=== PATIENT | male | born 1965 | race Caucasian/White ===

== ENCOUNTER 2016-11-11 12:10 | Emergency (ER) | payer SELFPAY ==
[2016-11-11] MEDS ORDERED: Ondansetron INJ* 2 MG/ML VIAL IV ONE (12:33)
[2016-11-11] MEDS ORDERED: HYDROmorphone* 1 MG/ML 1 ML CARPUJECT IV ONE (12:33)
[2016-11-11] MEDS ORDERED: NS 0.9% 1000 ML* 1,000 ML IV ONE ×2 (12:33→14:29)
[2016-11-11] MEDS ORDERED: Ketorolac INJ* 30 MG/ML 1 ML VIAL IV ONE (12:33)
[2016-11-11 12:53] LABS: Hematocrit 48 % (42-52); Mean Corpuscular HGB Conc 33 g/dl (31-36); Mean Corpuscular Hemoglobin 29 pg (27-31); Mean Corpuscular Volume 86 fL (80-94); Mean Platelet Volume 8 um3 (7.4-10.4); Red Blood Count 5.54 10^6/ul (4.0-5.4); Red Cell Distribution Width 14 % (10.5-15); White Blood Count 16.4 10^3/ul (3.5-10.8)
[2016-11-11 13:10] LABS: Albumin 4.5 g/dL (3.2-5.2); BUN/Creatinine Ratio 16.4 (8-20); C Reactive Protein 11.08 mg/L (< 5.00); Calcium 9.6 mg/dL (8.6-10.3); EGFR African American 90.4 (>60); EGFR Non-African American 70.3 (>60); Globulin 3.2 g/dL (2-4); Potassium 3.7 mmol/L (3.5-5.0); Total Bilirubin 0.6 mg/dL (0.2-1.0); Total Protein 7.7 g/dL (6.4-8.9)
--- NOTE | 2016-11-11 13:13 | RAD ---
Indication: Left flank pain. CT of the abdomen and pelvis was performed without oral or IV contrast demonstration. Coronal and sagittal reconstructed images were obtained. The lung bases demonstrate no pleural fluid, nodules or masses. Heart is of normal size without evidence of pericardial effusion. The liver is normal in size. It is diffusely decreased in density consistent with hepatic steatosis. The gallbladder demonstrates no calcified gallstones. No pericholecystic fluid or wall thickening is identified. Common duct is not dilated. The pancreas demonstrates no mass effect or ductal dilatation. The spleen is normal in size. No adrenal lesions are noted. There is mild left hydronephrosis and hydroureter. There is a 2 to 3 mm calculi in the distal left ureter just above the left ureterovesicular junction. The right ureter shows no evidence of obstructive uropathy. CT of the pelvis demonstrates diverticulosis without definite evidence of diverticulitis. Small bowel demonstrates no abnormal dilatation. The appendix is normal. IMPRESSION: There is a small 2 to 3 mm calculus in the distal left ureter just above the left ureterovesicular junction. Mild fullness of left renal collecting system is noted. The right kidney shows no obstructive uropathy. Diverticulosis without definite evidence of diverticulitis.
[2016-11-11 14:15] LABS: Urine Bilirubin Negative (Negative); Urine Glucose 3+(>=500 mg/dL) (Negative); Urine Nitrite Negative (Negative)
[2016-11-11] MEDS ORDERED: oxyCODONE/Acetamin 5/325 MG* TAB PO ONE (14:29)
[2016-11-11 16:42] VITALS: BP 133/74
--- NOTE | 2016-11-11 17:19 | ED ---
Ann Marie Izaguirre Thomas, scribed for Gio Herrera MD on 11/11/16 at 1227 . Abdominal Pain/Male - HPI Summary HPI Summary: The pt is a 51 y/o M with a Hx of kidney stones c/o constant L flank pain that suddenly began today at 08:00. The pain radiates to his groin. The pt rates the pain 10/10. The pain is aggravated and alleviated by nothing. 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 Pt additionally c/o N/V. He also complains of urinary urgency but inability to void. He did urinate before the pain began but he has not urinated since the pain began. The patient reports that these symptoms feel like a stone. PMHx: kidney stones (1-2), HTN. PSHx: R shoulder repair. SHx: no smoking, no alcohol use, no illicit drug use. FHx: kidney stones. He is accompanied by his girlfriend. He has not seen a urologist for his kidney stones. 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 Negative: Fever - Allergies/Home Medications Allergies/Adverse Reactions: Allergies Allergy/AdvReac Type Severity Reaction Status Date / Time No Known Allergies Allergy Verified 11/11/16 12:22 PMH/Surg Hx/FS Hx/Imm Hx Previously Healthy: No Endocrine/Hematology History: Denies: Hx Diabetes Cardiovascular History: Reports: Hx Hypertension Denies: Hx Pacemaker/ICD GI History: Denies: Other GI Disorders History: Reports: Hx Kidney Stones Sensory History: Denies: Hx Hearing Aid Psychiatric History: Denies: Hx Panic Disorder - Surgical History Surgery Procedure, Year, and Place: R shouder repair Infectious Disease History: No Infectious Disease History: Denies: Traveled Outside the [place] in Last 30 Days - Family History Known Family History: Positive: Other - POS: kidney stones - Social History Alcohol Use: None Substance Use Type: Reports: None Hx Tobacco Use: No Smoking Status (MU): Never Smoked Tobacco Review of Systems Negative: Fever Positive: Vomiting, Nausea Positive: flank pain - L flank pain that radiates into the groin, urgency, other - POS: inability to void All Other Systems Reviewed And Are Negative: Yes Physical Exam Triage Information Reviewed: Yes Vital Signs On Initial Exam: Initial Vitals Temp Pulse Resp BP Pulse Ox 98.4 F 70 22 143/68 98 11/11/16 12:13 11/11/16 12:13 11/11/16 12:13 11/11/16 12:13 11/11/16 12:13 Vital Signs Reviewed: Yes Appearance: Positive: Well-Appearing, Pain Distress - moderate, Obese Skin: Positive: Warm, Skin Color Reflects Adequate Perfusion, Dry Head/Face: Positive: Normal Head/Face Inspection Eyes: Positive: Normal ENT: Positive: Normal ENT inspection Neck: Positive: Supple, Nontender Respiratory/Lung Sounds: Positive: Clear to Auscultation, Breath Sounds Present Cardiovascular: Positive: RRR Abdomen Description: Positive: Nontender, Soft Bowel Sounds: Positive: Present Musculoskeletal: Positive: Normal Neurological: Positive: Normal Psychiatric: Positive: Normal, Affect/Mood Appropriate Diagnostics - Vital Signs Vital Signs Temp Pulse Resp BP Pulse Ox 11/11/16 12:19 98.8 F 80 22 156/65 99 11/11/16 12:13 98.4 F 70 22 143/68 98 - Laboratory Lab Results: Lab Results 11/11/16 11/11/16 11/11/16 Range/Units 12:40 12:40 12:40 WBC 16.4 H (3.5-10.8) 10^3/ul RBC 5.54 H (4.0-5.4) 10^6/ul Hgb 16.0 (14.0-18.0) g/dl Hct 48 (42-52) % MCV 86 (80-94) fL MCH 29 (27-31) pg MCHC 33 (31-36) g/dl RDW 14 (10.5-15) % Plt Count 313 (150-450) 10^3/ul MPV 8 (7.4-10.4) um3 Neut % (Auto) 78.7 (38-83) % Lymph % (Auto) 16.3 L (25-47) % Nolan % (Auto) 4.5 (1-9) % Eos % (Auto) 0.2 (0-6) % Baso % (Auto) 0.3 (0-2) % Absolute Neuts (auto) 12.9 H (1.5-7.7) 10^3/ul Absolute Lymphs (auto) 2.7 (1.0-4.8) 10^3/ul Absolute Monos (auto) 0.7 (0-0.8) 10^3/ul Absolute Eos (auto) 0 (0-0.6) 10^3/ul Absolute Basos (auto) 0.1 (0-0.2) 10^3/ul Absolute Nucleated RBC 0.01 10^3/ul Nucleated RBC % 0.1 Sodium 136 (133-145) mmol/L Potassium 3.7 (3.5-5.0) mmol/L Chloride 101 (101-111) mmol/L Carbon Dioxide 24 (22-32) mmol/L Anion Gap 11 (2-11) mmol/L BUN 18 (6-24) mg/dL Creatinine 1.10 (0.67-1.17) mg/dL Est GFR ( Amer) 90.4 (>60) Est GFR (Non-Af Amer) 70.3 (>60) BUN/Creatinine Ratio 16.4 (8-20) Glucose 228 H (70-100) mg/dL Lactic Acid 3.8 H* (0.5-2.0) mmol/L Calcium 9.6 (8.6-10.3) mg/dL Total Bilirubin 0.60 (0.2-1.0) mg/dL AST 21 (13-39) U/L ALT 32 (7-52) U/L Alkaline Phosphatase 63 (34-104) U/L C-Reactive Protein 11.08 H (< 5.00) mg/L Total Protein 7.7 (6.4-8.9) g/dL Albumin 4.5 (3.2-5.2) g/dL Globulin 3.2 (2-4) g/dL Albumin/Globulin Ratio 1.4 (1-3) Lipase 25 (11.0-82.0) U/L Urine Color Urine Appearance Urine pH (5-9) Ur Specific Sutter (1.010-1.030) Urine Protein (Negative) Urine Ketones (Negative) Urine Blood (Negative) Urine Nitrate (Negative) Urine Bilirubin (Negative) Urine Urobilinogen (Negative) Ur Leukocyte Esterase (Negative) Urine Glucose (Negative) Urine Ascorbic Acid (Negative) 11/11/16 Range/Units 13:47 WBC (3.5-10.8) 10^3/ul RBC (4.0-5.4) 10^6/ul Hgb (14.0-18.0) g/dl Hct (42-52) % MCV (80-94) fL MCH (27-31) pg MCHC (31-36) g/dl RDW (10.5-15) % Plt Count (150-450) 10^3/ul MPV (7.4-10.4) um3 Neut % (Auto) (38-83) % Lymph % (Auto) (25-47) % Nolan % (Auto) (1-9) % Eos % (Auto) (0-6) % Baso % (Auto) (0-2) % Absolute Neuts (auto) (1.5-7.7) 10^3/ul Absolute Lymphs (auto) (1.0-4.8) 10^3/ul Absolute Monos (auto) (0-0.8) 10^3/ul Absolute Eos (auto) (0-0.6) 10^3/ul Absolute Basos (auto) (0-0.2) 10^3/ul Absolute Nucleated RBC 10^3/ul Nucleated RBC % Sodium (133-145) mmol/L Potassium (3.5-5.0) mmol/L Chloride (101-111) mmol/L Carbon Dioxide (22-32) mmol/L Anion Gap (2-11) mmol/L BUN (6-24) mg/dL Creatinine (0.67-1.17) mg/dL Est GFR ( Amer) (>60) Est GFR (Non-Af Amer) (>60) BUN/Creatinine Ratio (8-20) Glucose (70-100) mg/dL Lactic Acid (0.5-2.0) mmol/L Calcium (8.6-10.3) mg/dL Total Bilirubin (0.2-1.0) mg/dL AST (13-39) U/L ALT (7-52) U/L Alkaline Phosphatase (34-104) U/L C-Reactive Protein (< 5.00) mg/L Total Protein (6.4-8.9) g/dL Albumin (3.2-5.2) g/dL Globulin (2-4) g/dL Albumin/Globulin Ratio (1-3) Lipase (11.0-82.0) U/L Urine Color Yellow Urine Appearance Clear Urine pH 5.0 (5-9) Ur Specific Sutter 1.015 (1.010-1.030) Urine Protein Negative (Negative) Urine Ketones 1+ H (Negative) Urine Blood Negative (Negative) Urine Nitrate Negative (Negative) Urine Bilirubin Negative (Negative) Urine Urobilinogen Negative (Negative) Ur Leukocyte Esterase Negative (Negative) Urine Glucose 3+(>=500 mg/dl) H (Negative) Urine Ascorbic Acid * H (Negative) Result Diagrams: 11/11/16 12:40 11/11/16 12:40 Lab Statement: Any lab studies that have been ordered have been reviewed, and results considered in the medical decision making process. - CT CT Abd/Pel CT Interpretation: Positive (See Comments) - There is a small 2 to 3 mm calculus in the distal left ureter just above the left ureterovesicular junction. Mild fullness of left renal collecting system is noted. The right kidney shows no obstructive uropathy. Diverticulosis without definite evidence of diverticulitis. ED Physician has read this report and agrees. CT Interpretation Completed By: Radiologist Abdominal Pain Fem Course/Dx - Course Course Of Treatment: Mr. Walters presented with the sudden onset of left flank pian that was severe. He was diaphoretic and in obvious distress. He was found to have a 2-3 mm left UVJ stone on CT and a negative urine. Prior to D/C he had a sudden increase in his pain followed by the complete cessation. He likely passed the stone. - Diagnoses Provider Diagnoses: Kidney stone Discharge - Discharge Plan Condition: Stable Disposition: HOME Patient Education Materials: Kidney Stones (ED) Referrals: Quan Guzmán MD [Medical Doctor] - 2 Days Additional Instructions: Follow up with Dr. Guzmán, a urologist, in 2-3 days. Return to the emergency department for any new or worsening symptoms. The documentation as recorded by the Ann Marie bentley Thomas accurately reflects the service I personally performed and the decisions made by me, Gio Herrera MD.
== END 2016-11-11 16:44 | disposition home or self-care (01) ==
LOC: ED 12:10
DX: N20.0 Calculus of kidney (principal); I10 Essential (primary) hypertension; K57.90 Diverticulosis of intestine, part unspecified, without perforation or abscess without bleeding
CPT/HCPCS: 36415; 74176; 80053; 81003; 83605; 83690; 85025; 86140; 96360; 96361; 96374; 96375; 99283; A9270-GY; J1170; J1885; J2405

== ENCOUNTER 2018-09-12 08:31 | Emergency (ER) | payer SELFPAY ==
[2018-09-12] MEDS ORDERED: Ketorolac INJ* 30 MG/ML 1 ML VIAL ONE (09:00)
[2018-09-12] MEDS ORDERED: NS 0.9% 1000 ML** 1,000 ML IV ONE (09:00)
[2018-09-12] MEDS ORDERED: Ketorolac INJ* 30 MG/ML 1 ML VIAL IV PUSH ONE (09:00)
[2018-09-12] MEDS ORDERED: Ondansetron INJ* 2 MG/ML VIAL IV ONE (09:00)
--- NOTE | 2018-09-12 09:02 | ED ---
Back Pain - HPI Summary HPI Summary: Patient is a 53-year-old male who presents emergency department for acute onset of left leg pain started this morning. Patient has a history of kidney stones in the past. Symptoms today feel similar. Associated symptoms of nausea and vomiting. Denies fever, chills, chest pain, shortness of breath. No significant past medical history. Symptoms are moderate in severity. No current modifying factors. - History of Current Complaint Chief Complaint: EDFlankPain Stated Complaint: "KIDNEY STONE PER SIGIFIGANT OTHER" Time Seen by Provider: 09/12/18 08:59 Hx Obtained From: Patient Pain Intensity: 10 - Allergies/Home Medications Allergies/Adverse Reactions: Allergies Allergy/AdvReac Type Severity Reaction Status Date / Time No Known Allergies Allergy Verified 09/12/18 08:44 PMH/Surg Hx/FS Hx/Imm Hx Previously Healthy: Yes Endocrine/Hematology History: Denies: Hx Diabetes Cardiovascular History: Reports: Hx Hypertension Denies: Hx Pacemaker/ICD GI History: Denies: Other GI Disorders History: Reports: Hx Kidney Stones Sensory History: Denies: Hx Hearing Aid Psychiatric History: Denies: Hx Panic Disorder - Surgical History Surgery Procedure, Year, and Place: R shouder repair Infectious Disease History: No Infectious Disease History: Denies: Traveled Outside the [place] in Last 30 Days - Family History Known Family History: Positive: Other - POS: kidney stones, Non-Contributory - Social History Occupation: Employed Full-time Lives: With Family Alcohol Use: None Substance Use Type: Reports: None Hx Tobacco Use: No Smoking Status (MU): Never Smoked Tobacco Review of Systems Constitutional: Negative Negative: Fever, Chills Cardiovascular: Negative Negative: Palpitations, Chest Pain Respiratory: Negative Negative: Shortness Of Breath Positive: Abdominal Pain, Vomiting, Nausea. Negative: Diarrhea Positive: flank pain. Negative: dysuria Neurological: Negative All Other Systems Reviewed And Are Negative: Yes Physical Exam Triage Information Reviewed: Yes Vital Signs On Initial Exam: Initial Vitals Temp Pulse Resp BP Pulse Ox 96.8 F 60 20 142/87 97 09/12/18 08:41 09/12/18 08:41 09/12/18 08:41 09/12/18 08:41 09/12/18 08:41 Vital Signs Reviewed: Yes Appearance: Positive: Pain Distress - Pt. sitting up in bed with wet washcloth on forehead. Appears in pain but nontoxic. present. Skin: Positive: Warm, Dry Head/Face: Positive: Normal Head/Face Inspection Eyes: Positive: Normal, EOMI Neck: Positive: Supple Respiratory/Lung Sounds: Positive: Clear to Auscultation, Breath Sounds Present Cardiovascular: Positive: Normal, RRR Abdomen Description: Positive: Other: - Obese. Left CVA tenderness. Neurological: Positive: Normal, CN Intact II-III Psychiatric: Positive: Affect/Mood Appropriate Diagnostics - Vital Signs Vital Signs Temp Pulse Resp BP Pulse Ox 09/12/18 08:41 96.8 F 60 20 142/87 97 - Laboratory Result Diagrams: 09/12/18 09:31 09/12/18 09:31 Lab Statement: Any lab studies that have been ordered have been reviewed, and results considered in the medical decision making process. Back Pain Course/Dx - Course Course Of Treatment: Patient presenting with acute left flank pain and history of kidney stones. He is afebrile stable vital signs. Patient started on IV fluids and pain medication. Labs are unremarkable except mildly elevated glucose. Urinalysis shows RBCs without evidence of infection. CT scan shows a 2 mm calculus in the left ureter with mild hydro, reading per radiology. Reexamination patient is feeling much better. He states pain is slightly returning but overall is feeling better and is tolerating by mouth fluids. Will given another dose of pain medication and plan plan on discharge home with a few days of Percocet, Zofran and Flomax. He will follow up with urology if needed. Return to ER for uncontrolled pain, vomiting, fever or if concerned. He should understands and agrees with plan. - Diagnoses Differential Diagnosis/HQI/PQRI: Positive: Aneurysm, Herniated Disc, Renal Colic , Strain, Sprain Provider Diagnoses: Urolithiasis Discharge - Sign-Out/Discharge Documenting (check all that apply): Patient Departure Patient Received Moderate/Deep Sedation with Procedure: No - Discharge Plan Condition: Improved Disposition: HOME Prescriptions: Ondansetron TAB* [Zofran 4 MG Tab*] 4 mg PO Q6H PRN #12 tab PRN Reason: Nausea oxyCODONE/Acetamin 5/325 MG* [Percocet 5/325 TAB*] 1 tab PO Q6H PRN #12 tab MDD 4 PRN Reason: Pain Tamsulosin CAP* [Flomax CAP*] 0.4 mg PO DAILY #5 cap Patient Education Materials: Kidney Stones (ED) Referrals: Chicho Shetty MD [Primary Care Provider] - Nayan Nash MD [Medical Doctor] - Additional Instructions: Follow up with urology in one week if pain persist Medication as directed Increase fluids Return to ER for increased pain, fever, vomiting or if concerned - Billing Disposition and Condition Condition: IMPROVED Disposition: Home
[2018-09-12] MEDS ORDERED: Morphine 4 MG/ML VIAL (1 ml) 4 MG/ML VIAL IV ONE ×2 (09:04→10:41)
--- NOTE | 2018-09-12 09:22 | ED ---
Back Pain - History of Current Complaint Chief Complaint: EDFlankPain Stated Complaint: "KIDNEY STONE PER SIGIFIGANT OTHER" Time Seen by Provider: 09/12/18 08:59 Hx Obtained From: Patient Pain Intensity: 10 - Allergies/Home Medications Allergies/Adverse Reactions: Allergies Allergy/AdvReac Type Severity Reaction Status Date / Time No Known Allergies Allergy Verified 09/12/18 08:44 PMH/Surg Hx/FS Hx/Imm Hx Endocrine/Hematology History: Denies: Hx Diabetes Cardiovascular History: Reports: Hx Hypertension Denies: Hx Pacemaker/ICD GI History: Denies: Other GI Disorders History: Reports: Hx Kidney Stones Sensory History: Denies: Hx Hearing Aid Psychiatric History: Denies: Hx Panic Disorder - Surgical History Surgery Procedure, Year, and Place: R shouder repair Infectious Disease History: No Infectious Disease History: Denies: Traveled Outside the [place] in Last 30 Days - Family History Known Family History: Positive: Other - POS: kidney stones - Social History Alcohol Use: None Substance Use Type: Reports: None Hx Tobacco Use: No Smoking Status (MU): Never Smoked Tobacco Physical Exam Vital Signs On Initial Exam: Initial Vitals Temp Pulse Resp BP Pulse Ox 96.8 F 60 20 142/87 97 09/12/18 08:41 09/12/18 08:41 09/12/18 08:41 09/12/18 08:41 09/12/18 08:41 Diagnostics - Vital Signs Vital Signs Temp Pulse Resp BP Pulse Ox 09/12/18 09:18 22 09/12/18 08:41 96.8 F 60 20 142/87 97 - Laboratory Lab Statement: Any lab studies that have been ordered have been reviewed, and results considered in the medical decision making process. Discharge - Discharge Plan Referrals: Chicho Shetty MD [Primary Care Provider] -
[2018-09-12 09:40] LABS: Urine Appearance Cloudy; Urine Bacteria Absent (Absent); Urine Bilirubin Negative (Negative); Urine Blood 3+ (Negative); Urine Color Amber; Urine Glucose 3+(>=500 mg/dL) (Negative); Urine Ketones Trace (Negative); Urine Nitrite Negative (Negative); Urine Protein 1+(30 mg/dL) (Negative); Urine Red Blood Cell 3+(>10/hpf) (Absent); Urine Specific Gravity 1.025 (1.010-1.030); Urine Squamous Epithelial Cell Present (Absent); Urine Urobilinogen Negative (Negative); Urine White Blood Cell Trace(0-5/hpf) (Absent)
[2018-09-12 10:05] LABS: ABS Eosinophils 0.1 10^3/ul (0-0.6); ABS Lymphocytes 2.9 10^3/ul (1.0-4.8); ABS Monocytes 0.6 10^3/ul (0-0.8); ABS Neutrophils 6.8 10^3/ul (1.5-7.7); Eosinophil % 0.6 %; Hematocrit 45 % (42-52); Hemoglobin 15.3 g/dL (14.0-18.0); Lymphocyte % 27.5 %; Mean Corpuscular HGB Conc 34 g/dL (31-36); Mean Corpuscular Hemoglobin 29 pg (27-31); Mean Corpuscular Volume 86 fL (80-94); Mean Platelet Volume 8.8 fL (7.4-10.4); Nucleated Red Blood Cells % 0.1; Platelet Count 301 10^3/uL (150-450); Red Blood Count 5.26 10^6 /uL (4.18-5.48); Red Cell Distribution Width 14 % (10-15); White Blood Count 10.4 10^3/uL (3.5-10.8)
[2018-09-12 10:32] LABS: Albumin 4.2 g/dL (3.2-5.2); Albumin/Globulin Ratio 1.4 (1-3); BUN/Creatinine Ratio 18.1 (8-20); Calcium 9.1 mg/dL (8.6-10.3); EGFR African American 89.1 (>60); EGFR Non-African American 73.6 (>60); Globulin 3.1 g/dL (2-4); Total Bilirubin 0.6 mg/dL (0.2-1.0); Total Protein 7.3 g/dL (6.4-8.9)
[2018-09-12 12:08] VITALS: BP 159/94
== END 2018-09-12 12:07 | disposition home or self-care (01) ==
LOC: ED 08:31
DX: N20.9 Urinary calculus, unspecified (principal); I10 Essential (primary) hypertension
CPT/HCPCS: 36415; 74176; 80053; 81003; 81015; 83690; 85025; 87086; 96361; 96374; 96375; 99284; J1885; J2270; J2405

== ENCOUNTER 2021-03-10 09:53 | Inpatient (IN) ==
[2021-03-10 12:31] LABS: Venous Bicarbonate HCO3 25.2 mmol/L (24-28)
[2021-03-10 12:35] LABS: Hematocrit 47 % (42-52); Hemoglobin 16.1 g/dL (14.0-18.0); Mean Corpuscular HGB Conc 35 g/dL (31-36); Mean Corpuscular Hemoglobin 29 pg (27-31); Mean Corpuscular Volume 84 fL (80-94); Mean Platelet Volume 8.8 fL (7.4-10.4); Platelet Count 190 10^3/uL (150-450); Red Blood Count 5.58 10^6 /uL (4.18-5.48); Red Cell Distribution Width 14 % (10-15); White Blood Count 6.9 10^3/uL (3.5-10.8)
[2021-03-10 12:43] LABS: ABS Lymphocytes 1.7 10^3/ul (1.0-4.8); ABS Monocytes 0.9 10^3/ul (0-0.8); ABS Neutrophils 4.3 10^3/ul (1.5-7.7); Lymphocyte % 25.2 %
[2021-03-10 12:52] LABS: Albumin 3.8 g/dL (3.2-5.2); Albumin/Globulin Ratio 1.2 (1-3); C Reactive Protein 103.77 mg/L (<8.01); Calcium 8.4 mg/dL (8.6-10.3); Globulin 3.2 g/dL (2-4); Potassium 3.9 mmol/L (3.5-5.0); Total Bilirubin 0.6 mg/dL (0.2-1.0); eGFR CKD-EPI 106.3 (>60)
[2021-03-10 12:53] LABS: Activated Partial Thrombo Time 35.5 seconds (26.0-38.0); INR 1.19 (0.86-1.15); Troponin I 0.01 ng/mL (<0.03)
[2021-03-10 13:34] LABS: Ferritin 1446.3 ng/mL (24-336)
[2021-03-10] MEDS ORDERED: NS 0.9% 250 ml 250 ML ONE (15:59)
[2021-03-10] MEDS ORDERED: Remdesivir 100 mg Vial 200 MG in NS 0.9% 250 ml 210 ML IV ONE (16:00)
[2021-03-10] MEDS: Enoxaparin 40 MG/0.4 ML SYR SUBCUT SCH (16:07)
[2021-03-10 22:18] LABS: Albumin 3.5 g/dL (3.2-5.2); Albumin/Globulin Ratio 1.2 (1-3); Globulin 2.9 g/dL (2-4); Total Bilirubin 0.5 mg/dL (0.2-1.0); Total Protein 6.4 g/dL (6.4-8.9); eGFR CKD-EPI 111.1 (>60)
[2021-03-11 06:17] LABS: ABS Lymphocytes 1.3 10^3/ul (1.0-4.8); ABS Monocytes 0.9 10^3/ul (0-0.8); ABS Neutrophils 3.1 10^3/ul (1.5-7.7); Hematocrit 45 % (42-52); Hemoglobin 15.7 g/dL (14.0-18.0); Mean Corpuscular HGB Conc 35 g/dL (31-36); Mean Corpuscular Hemoglobin 29 pg (27-31); Mean Corpuscular Volume 84 fL (80-94); Mean Platelet Volume 8.6 fL (7.4-10.4); Nucleated Red Blood Cells % 0.3; Platelet Count 203 10^3/uL (150-450); Red Blood Count 5.38 10^6 /uL (4.18-5.48); Red Cell Distribution Width 14 % (10-15); White Blood Count 5.2 10^3/uL (3.5-10.8)
[2021-03-11 06:23] LABS: INR 1.19 (0.86-1.15)
[2021-03-11 06:48] LABS: Albumin 3.5 g/dL (3.2-5.2); Albumin/Globulin Ratio 1.2 (1-3); Calcium 8.2 mg/dL (8.6-10.3); Total Bilirubin 0.5 mg/dL (0.2-1.0); Total Protein 6.5 g/dL (6.4-8.9); eGFR CKD-EPI 114.5 (>60)
[2021-03-11] MEDS ORDERED: Dextrose 50% Syringe 50 ml 25 GM/50 ML SYRINGE IV PUSH PRN (13:08)
[2021-03-11] MEDS: Enoxaparin 40 MG/0.4 ML SYR SUBCUT SCH (14:23)
[2021-03-11] MEDS: Remdesivir 100 mg Vial 100 MG in NS 0.9% 250 ml 230 ML IV SCH (21:14)
[2021-03-12 06:48] LABS: INR 1.12 (0.86-1.15)
[2021-03-12 07:04] LABS: Albumin 3.4 g/dL (3.2-5.2); Albumin/Globulin Ratio 1.2 (1-3); Calcium 8.2 mg/dL (8.6-10.3); Globulin 2.8 g/dL (2-4); Potassium 3.9 mmol/L (3.5-5.0); Total Bilirubin 0.6 mg/dL (0.2-1.0); Total Protein 6.2 g/dL (6.4-8.9); eGFR CKD-EPI 112.7 (>60)
[2021-03-12] MEDS: Enoxaparin 40 MG/0.4 ML SYR SUBCUT SCH (14:30)
[2021-03-12] MEDS ORDERED: Furosemide 20 mg/2 ml IV VIAL IV ONE ×2 (15:09→21:49)
[2021-03-12] MEDS: Remdesivir 100 mg Vial 100 MG in NS 0.9% 250 ml 230 ML IV SCH (21:44)
[2021-03-13 06:30] LABS: INR 1.13 (0.86-1.15)
[2021-03-13 06:48] LABS: Albumin 3.5 g/dL (3.2-5.2); Albumin/Globulin Ratio 1.3 (1-3); Globulin 2.8 g/dL (2-4); Magnesium 2.1 mg/dL (1.9-2.7); Potassium 3.6 mmol/L (3.5-5.0); Total Bilirubin 0.7 mg/dL (0.2-1.0); Total Protein 6.3 g/dL (6.4-8.9); eGFR CKD-EPI 110.1 (>60)
[2021-03-13] MEDS: Enoxaparin 40 MG/0.4 ML SYR SUBCUT SCH (13:51)
[2021-03-13] MEDS: Remdesivir 100 mg Vial 100 MG in NS 0.9% 250 ml 230 ML IV SCH (21:01)
[2021-03-14 06:46] LABS: INR 1.12 (0.86-1.15)
[2021-03-14 07:10] LABS: Albumin 3.5 g/dL (3.2-5.2); Albumin/Globulin Ratio 1.3 (1-3); Calcium 8.1 mg/dL (8.6-10.3); Globulin 2.8 g/dL (2-4); Potassium 3.6 mmol/L (3.5-5.0); Total Bilirubin 0.8 mg/dL (0.2-1.0); Total Protein 6.3 g/dL (6.4-8.9); eGFR CKD-EPI 112.2 (>60)
[2021-03-14] MEDS ORDERED: Furosemide 20 mg/2 ml IV VIAL IV ONE (13:00)
[2021-03-14] MEDS: Enoxaparin 40 MG/0.4 ML SYR SUBCUT SCH (14:04)
[2021-03-14] MEDS: Remdesivir 100 mg Vial 100 MG in NS 0.9% 250 ml 230 ML IV SCH (20:52)
[2021-03-15 06:23] LABS: INR 1.09 (0.86-1.15)
[2021-03-15 06:44] LABS: Albumin 3.6 g/dL (3.2-5.2); Albumin/Globulin Ratio 1.3 (1-3); Calcium 8.1 mg/dL (8.6-10.3); Globulin 2.8 g/dL (2-4); Potassium 3.7 mmol/L (3.5-5.0); Total Bilirubin 0.9 mg/dL (0.2-1.0); Total Protein 6.4 g/dL (6.4-8.9); eGFR CKD-EPI 113.3 (>60)
[2021-03-15] MEDS ORDERED: Furosemide 20 mg/2 ml IV VIAL IV SLOW PU ONE (08:52)
[2021-03-15 11:20] VITALS: BP 143/65
== END 2021-03-15 12:00 | disposition left against medical advice (07) | DRG 177 ==
LOC: ED 09:53 → SUATTDRO 15:21 → EDHOLD 15:21 → MED 18:07
PROVIDERS: ADMIT Internal Medicine; ATTEND Hospitalist